=== PATIENT | male | born 1960 | race Caucasian/White ===

== ENCOUNTER → 2017-12-17 | Outpatient (CLI) | payer OTHER ==
[~2017-12-17] MED LIST: ANTIVERT12.5 MG PO; ASPIRIN325 PO; ASPIRIN81 M2 PO; ATORVASTATIN CA40 MG PO; BENICAR20 MG PO; BYSTOLIC2.5 MG PO; EFFIENT10 MG PO; FERREX-150 PLU150 MG PO; FISH OIL 1,0001 EAC5 PO; FISH OIL SOFTG1 EACH PO; IRBESARTAN-HCT1 EAC1 PO; ISOSORBIDE DINI30 MG PO; K-DUR10 MEQ PO; LASIX 40 MG TAB40 M1 PO; LIVALO2 MG PO; LORTAB 5 MG/5001 TA1 PO; MOM PO; NITROGLYCERIN0.4 MG SUBLING; NITROSTAT0.4 MG SL; PERCOCET 5-3251 EACH PO; PHISOHEX148 ML TP; QUINU10 PD PO; TOBREX5 ML OP; TOPROL XL25 MG PO; UNICOMPLEX M TA1 TA1 PO
== END ==
LOC: ULTRA 12:42
DX: N43.3 Hydrocele, unspecified (principal); I10 Essential (primary) hypertension; E78.5 Hyperlipidemia, unspecified; Z95.1 Presence of aortocoronary bypass graft; Z87.891 Personal history of nicotine dependence; Z98.61 Coronary angioplasty status

== ENCOUNTER 2020-01-29 02:33 | Inpatient (IN) | payer OTHER ==
[~2020-01-29] VITALS: Ht 175.3 cm; Wt 104.3 kg
[2020-01-29 02:37] VITALS: BP 157/82
[2020-01-29 02:58] LABS: ABSOLUTE NEUTROPHILS 7.6 thou/uL (1.4-8.2); EOSINOPHILS 1.7 % (0.0-3.0); HEMATOCRIT 44.6 % (42.0-52.0); HEMOGLOBIN 14.9 gm/dL (14.0-18.0); LYMPHOCYTES 27.8 % (24.0-44.0); MCHC 33.3 g/dL (28.0-37.0); MCV 80.9 fL (80.0-100.0); MONOCYTES 6.7 % (1.0-8.0); PLATELET COUNT 294 thou/uL (150-400); POLYS 62.8 % (36.0-66.0); RBC 5.51 mil/uL (4.50-6.00); RDW 15.2 % (10.5-14.5)
[2020-01-29 03:04] LABS: CALCIUM 9.5 mg/dL (8.5-10.1); CREATININE 1.5 mg/dL (0.7-1.3); POTASSIUM 3.9 mmol/L (3.5-5.1)
[2020-01-29] MEDS ORDERED: ZETIA10 MG PO (03:08)
[2020-01-29] MEDS ORDERED: AVALIDE 300-121 EACH PO (03:09)
[2020-01-29 03:10] LABS: ALBUMIN 3.9 g/dL (3.4-5.0); TOTAL BILIRUBIN 0.5 mg/dL (0.2-1.0); TOTAL PROTEIN 8.2 g/dL (6.4-8.2)
[2020-01-29 03:51] LABS: URINE BILIRUBIN NEGATIVE (Negative); URINE BLOOD TRACE (Negative); URINE CLARITY CLEAR; URINE COLOR YELLOW; URINE GLUCOSE-RANDOM* NEGATIVE (Negative); URINE KETONES NEGATIVE (Negative); URINE LEUKOCYTES-REFLEX NEGATIVE (Negative); URINE NITRITE-REFLEX NEGATIVE (Negative); URINE PROTEIN (DIPSTICK) NEGATIVE (Negative); URINE SPECIFIC GRAVITY 1.025 (1.005-1.035); URINE UROBILINOGEN 0.2 E.U./dl (0.2-1.0)
[2020-01-29 07:10] VITALS: BP 125/59
[2020-01-29 10:07] LABS: MAGNESIUM 2.3 mg/dL (1.8-2.4); PHOSPHORUS 3.9 mg/dL (2.5-4.9)
[2020-01-29 11:46] LABS: HEMATOCRIT 39.1 % (42.0-52.0); HEMOGLOBIN 13.1 gm/dL (14.0-18.0)
--- NOTE | 2020-01-29 13:03 | EKG ---
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: MARY : 1960 Requested By: Chantale Rebollar Order Number: [id number] MD: Aamrjit Pak Measurements Intervals [place] Rate: 69 P: 64 OK: 142 QRS: 22 QRSD: 92 T: 162 QT: 397 QTc: 426 Interpretive Statements Sinus rhythm Inferior infarct, old Lateral leads are also involved Compared to ECG 08/14/2014 14:54:00 No significant changes Electronically Signed On 01-29-2020 13:03:24 CDT by Amarjit Pak [email or web address] <ELECTRONICALLY SIGNED> By: Amarjit Pak MD, [facility] 01/29/20 1303 [id number] Amarjit Pak MD, [facility] /EPI
[2020-01-29 13:12] VITALS: BP 125/59
[2020-01-29 13:30] VITALS: BP 129/70
[2020-01-29 14:47] VITALS: BP 135/74
--- NOTE | 2020-01-29 18:55 | NUR ---
Admitted from ER due to SBO, arrived in the unit approximately 1600; transferred to room safely. Pt initially upset from his experience at ER, talked to patient and he calmed down. A+OX4. On room air. Admission education, assessment and history done, admission forms signed. On MS, not on telemetry; no complain of chest pain, crushing sensation and heaviness. On clear liquids- tolerating well; no nausea, no vomiting and no abdominal pain noted. Continent of bowel and bladder, able to go to the toilet independently. Up ad chalino, independent with ADLs. With SL at R AC- pt with orders for IVF, pt requested if ok to leave off IVF for now, tolerating oral fluid intake- Dr Rebollar informed that pt tolerating clear liquids, as per physician- may leave off IVF for now. Able to have a bowel movement today- charted and Dr Rebollar informed. Pt asked if he will be discharged today since no pain since this AM, called Dr Murphy and he said to keep pt on clear liquids for now, observe overnight and he will assess pt tomorrow if still needing surgery- no discharge for today- pt informed and updated and agreed to stay. With at bedside. Complained of headache, no PRN prescribed- Dr Rebollar informed, order for medication obtained- given medication as prescribed. To continue monitoring patient.
[2020-01-29 20:41] VITALS: BP 113/67
--- NOTE | 2020-01-30 02:47 | NUR ---
ASSUMED PT CARE AT 1910. PT IS A&OX4. VITAL SIGNS STABLE. PT IS UP AD ARPITA. PT DENIES ANY PAIN. PT EXPRESSED THAT HE IS CONCERNED ABOUT THE DIFFERENT SUGGESTIONS FROM [facility] AND [facility] ON WHAT DIRECTION HE SHOULD GO WITH. PT IS CONCERNED BECAUSE THIS IS THE THIRD TIME HE HAS EXPERIENCED THIS ABD PAIN AND WOULD LIKE TO GET TO THE BOTTOM OF IT. PT STATES THAT HE HAS HOT BEEN IN ANY PAIN SINCE LEAVING THE ER. I EXPLAINED TO HIM THAT HE WAS HERE FOR OBSERVATION. PT DOES NOT HAVE AN NG TUBE IN PLACE. PT IS IN HIS ROOM. WILL CONTINUE TO MONITOR.
[2020-01-30 05:56] LABS: HEMATOCRIT 36.7 % (42.0-52.0); HEMOGLOBIN 12.3 gm/dL (14.0-18.0); MCH 27.3 pg (26.0-34.0); MCHC 33.6 g/dL (28.0-37.0); MCV 81.1 fL (80.0-100.0); RBC 4.52 mil/uL (4.50-6.00); RDW 14.9 % (10.5-14.5); WBC 6.8 thou/uL (4.0-11.0)
[2020-01-30 06:06] LABS: CALCIUM 8.8 mg/dL (8.5-10.1); CREATININE 1.2 mg/dL (0.7-1.3); MAGNESIUM 2.1 mg/dL (1.8-2.4); POTASSIUM 4.2 mmol/L (3.5-5.1)
[2020-01-30 07:17] VITALS: BP 135/68
--- NOTE | 2020-01-30 14:31 | NUR ---
PT ADMITTED RELATED TO SBO. CM REVIEWED CHART AND SPOKE WITH CARE TEAM. CM CALLED AND SPOKE WITH PT AT [facility] THIS DAY. PT APPEARED TO BE A&O X4. CM ROLE INTRODUCED. PT INDICATED HE LIVES IN A HOUSE WITH HIS SPOUSE WITH 1 STEP TO ENTER AND A FULL FLIGHT INSIDE. 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 HE INDICATED NO HH OR OTHER SERVICES. PT INDICATED HE PLANS TO RETURN HOME ONCE MEDICALLY STABLE. CM TO FOLLOW INDICATED WITH DC PLANNING.
[2020-01-30 19:22] VITALS: BP 107/73
--- NOTE | 2020-01-30 19:49 | NUR ---
ASSUMED CARE AT CHANGE OF SHIFT. A/OX4,DENEIS PAIN DENIES SHORT OF BREATH. GI SERIES TODAY WITH NO EVIDENCE OF SMALL BOWEL OBSTRUCTIONS,PT HAD SEVERAL EPISODED OF VOMITING AND DIARREA POST THE GI SERIES, TX WITH RANJAN. COMPLETED FOR TENITIVE DIAGNOSTIC LAPERSCOPE IN THE MORNING. PT AWARE TO BE NPO AFTER MIDNIGHT. COVID19 TEST PENDING RESULTS. PERSONAL ITEMS IN REACH CALLS FOR ASSISTANCE.
--- NOTE | 2020-01-31 03:12 | NUR ---
ASSUMED PT AT SHIFT CHANGE. PT IS A&OX4. IV IS IN HIS RIGHT AC. PT REQUESTS TO HAVE FLUIDS STOPPED SO HE COULD GET SOME SLEEP. PT DENIES PAIN. PT HAS NO COMPLAINTS OF NAUSEA OR VOMITING. PT IS IN ROOM WATCHING TELEVISION UNTIL BED. PT MAKES NEEDS KNOWN. PT HAS BEEN NPO SINCE MIDNIGHT. WILL CONTINUE TO MONITOR.
--- NOTE | 2020-01-31 08:37 | NUR ---
Received awake on bed. A+OX4. On room air. Vital signs stable. On MS, not on telemetry; no complain of chest pain, crushing sensation and heaviness. On clear liquid diet- tolerating well; no nausea, no vomiting and no abdominal pain noted during assessment. Continent of bowel and bladder, able to ambulate independently to the toilet. With SL at R AC- intact and flushing well. For possible diagnostic laparoscopy today- consent to be signed. Up ad chalino. No complain of pain during assessment. To continue monitoring patient. Lab called for pt's covid swab result- positive- result relayed to charge nurse- supervisor dog license officer Brielle informed; pt to be transferred to [facility], a/w room. Pt maintained on isolation until transferred to [facility]. Pt informed re: results and transfer to [facility]- kept updated.
[2020-01-31 09:48] VITALS: BP 137/79
[2020-01-31 12:26] VITALS: BP 137/79
--- NOTE | 2020-01-31 12:41 | NUR ---
PATIENT TRANSFER FROM AT 1030 DUE TO COVID POSITIVE. NO DISDRESS NOTED. DC TO HOME NOW.
== END 2020-01-31 12:47 | disposition home or self-care (01) | DRG 177 ==
LOC: ER 02:33 → 4W 05:00 → EROBS 05:00 → 4W 14:20 → 3W 01-31 10:46
PROVIDERS: Emergency Medicine; Nurse Practitioner Family; ADMIT Internal Medicine; ATTEND Internal Medicine
PROC: 0D9670Z Drainage of Stomach with Drainage Device, Via Natural or Artificial Opening (ICD-10-PCS; principal; 2020-01-29)
DX: U07.1 COVID-19 (principal); R65.11 Systemic inflammatory response syndrome (SIRS) of non-infectious origin with acute organ dysfunction; K56.600 Partial intestinal obstruction, unspecified as to cause; N17.9 Acute kidney failure, unspecified; K56.7 Ileus, unspecified; K56.609 Unspecified intestinal obstruction, unspecified as to partial versus complete obstruction; I10 Essential (primary) hypertension; E78.5 Hyperlipidemia, unspecified; M19.90 Unspecified osteoarthritis, unspecified site; D64.9 Anemia, unspecified; I25.10 Atherosclerotic heart disease of native coronary artery without angina pectoris; E66.9 Obesity, unspecified; E86.0 Dehydration; Z68.33 Body mass index [BMI] 33.0-33.9, adult; Z95.5 Presence of coronary angioplasty implant and graft; I25.2 Old myocardial infarction; Z95.1 Presence of aortocoronary bypass graft; Z79.899 Other long term (current) drug therapy; Z79.82 Long term (current) use of aspirin; Z87.891 Personal history of nicotine dependence
CPT/HCPCS: 10047

== ENCOUNTER → 2020-04-30 | Outpatient (CLI) | payer OTHER ==
[~2020-04-30] MED LIST changes: +AVALIDE 300-121 EACH PO; +ZETIA10 MG PO
== END ==
LOC: SJCVCIMAG 09:30
PROVIDERS: ATTEND Internal Medicine Cardiovascular Disease
DX: I25.10 Atherosclerotic heart disease of native coronary artery without angina pectoris (principal); I49.3 Ventricular premature depolarization; Z95.1 Presence of aortocoronary bypass graft; Z95.5 Presence of coronary angioplasty implant and graft

== ENCOUNTER → 2021-05-18 | Outpatient (CLI) | payer OTHER | LOC: SJCVCIMAG 09:20 | PROVIDERS: ATTEND Internal Medicine Cardiovascular Disease | DX: I25.10 Atherosclerotic heart disease of native coronary artery without angina pectoris (principal); R07.9 Chest pain, unspecified ==